=== PATIENT | female | born 2000 | race American Indian/Alaskan Native ===

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

== ENCOUNTER 2022-01-24 16:37 | Emergency (ER) | payer MEDICAID ==
[2022-01-24 17:19] VITALS: BP 140/82
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
== END 2022-01-24 17:20 | disposition home or self-care (01) ==
LOC: ED 16:37
DX: Z00.00 Encounter for general adult medical examination without abnormal findings (principal); Z20.2 Contact with and (suspected) exposure to infections with a predominantly sexual mode of transmission
CPT/HCPCS: 99282